=== PATIENT | female | born 1970 | race Caucasian/White ===

== ENCOUNTER → 2016-09-25 | Day surgery (SDC) | payer OTHER ==
--- NOTE | 2016-09-28 08:55 | PATH ---
Surgical Pathology Report Patient Name: ASHKAN MORRIS Med. Rec. #: [id number] /Age/Gender: 1970 (Age: 46) / F Account: [id number] Location: [facility] Taken: 09/25/2016 Received: 09/25/2016 Reported: 09/28/2016 Physicians: Gordo Esqueda MD Specimen(s) Received RIGHT BREAST CORE BIOPSY 10 O'CLOCK, 8CM FN Clinical History Suspicious Final Diagnosis RIGHT BREAST, 10:00 8 CM FROM NIPPLE, NEEDLE CORE BIOPSY: BENIGN BREAST TISSUE WITH SCLEROSING ADENOSIS. Electronically Signed Pasha Lai M.D. Gross Description Received in formalin labeled "right breast biopsy 10:00, 8 cmfn," is a 2.5 x 2.0 x 0.3 cm aggregate of multiple yusuf-yellow, irregular to cylindrical portions of fibroadipose tissue admixed with blood clot. The formalin is filtered and the specimen is entirely submitted in one cassette. Time to formalin fixation: 2 minutes Total formalin fixation time: Approximately 8 hours /09/25/2016
== END | disposition home or self-care (01) ==
LOC: FRADUS-SUR 13:20
PROVIDERS: ATTEND Family Medicine
PROC: 0HBT3ZX Excision of Right Breast, Percutaneous Approach, Diagnostic (ICD-10-PCS; principal; 2016-09-25)
DX: N63 Unspecified lump in breast (principal); N60.21 Fibroadenosis of right breast
CPT/HCPCS: 19083; 87899; 88305-TC; A4648